=== PATIENT | female | born 1965 | race Native Hawaiian/Other Pacific Islander ===

== ENCOUNTER 2022-09-01 10:49 | Outpatient (CLI) | payer BC | END 2022-09-01 19:04 | disposition home or self-care (01) | LOC: RAD 10:49 | PROVIDERS: ATTEND Nurse Practitioner Family | DX: M06.4 Inflammatory polyarthropathy (principal); M25.511 Pain in right shoulder; M25.512 Pain in left shoulder; M54.2 Cervicalgia; M54.59 Other low back pain; Z68.41 Body mass index [BMI] 40.0-44.9, adult ==